=== PATIENT | male | born 1995 | race American Indian/Alaskan Native ===

== ENCOUNTER 2018-02-28 22:06 | Emergency (ER) | payer OTHER ==
[2018-03-01] MEDS ORDERED: MOTRIN PO ONE (02:42)
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
[2018-03-01 05:52] VITALS: BP 118/80
== END 2018-03-01 03:08 | disposition home or self-care (01) ==
LOC: ED 22:06
DX: S13.4XXA Sprain of ligaments of cervical spine, initial encounter (principal); S39.012A Strain of muscle, fascia and tendon of lower back, initial encounter; V79.59XA Passenger on bus injured in collision with other motor vehicles in traffic accident, initial encounter; Y93.89 Activity, other specified; Y99.9 Unspecified external cause status; Y92.410 Unspecified street and highway as the place of occurrence of the external cause
CPT/HCPCS: 99282